=== PATIENT | female | born 1980 | race Caucasian/White ===

== ENCOUNTER 2016-11-17 02:01 | Emergency (ER) | payer OTHER ==
[2016-11-17 02:07] VITALS: RESP 16
[2016-11-17 02:36] LABS: % IMMATURE GRANULYOCYTES 0.6 % (0.0-1.1); ABSOLUTE IMMATURE GRANULOCYTES 0.13 10^3/uL (0.00-0.10); ADD DIFF? NO; ADD MORPH? NO; ADD SCAN? NO; ATYPICAL LYMPHOCYTE FLAG 40 (0-99); FRAGMENT RBC FLAG 0 (0-99); HEMATOCRIT 36.3 % (38.0-47.0); HEMOGLOBIN 12.9 g/dL (12.6-16.3); LEFT SHIFT FLG 0 (0-99); LIPEMIA HEMOLYSIS FLAG 90 (0-99); MEAN CELL HEMOGLOBIN 33.9 pg (27.9-34.1); MEAN CELL HEMOGLOBIN CONCENTR. 35.5 g/dL (32.4-36.7); MEAN CELL VOLUME 95.3 fL (81.5-99.8); MEAN PLATELET VOLUME 10.7 fL (8.7-11.7); PLATELET CLUMPS FLAG 10 (0-99); PLATELET COUNT 255 10^3/uL (150-400); RED BLOOD CELL COUNT 3.81 10^6/uL (4.18-5.33); RED CELL DISTRIBUTION WIDTH 11.9 % (11.5-15.2)
[2016-11-17 02:50] LABS: ALANINE AMINOTRANSFERASE 32 IU/L (9-52); ALBUMIN 3.8 g/dL (3.5-5.0); ALKALINE PHOSPHATASE 106 IU/L (38-126); ANION GAP 9 mEq/L (8-16); ASPARTATE AMINOTRANSFERASE 21 IU/L (14-46); BILIRUBIN,TOTAL 0.3 mg/dL (0.1-1.4); CALCIUM 9.2 mg/dL (8.5-10.4); CARBON DIOXIDE 21 mEq/l (22-31); CHLORIDE 107 mEq/L (97-110); CREATININE 0.4 mg/dL (0.6-1.0); GLOMERULAR FILTRATION RATE > 60; GLUCOSE 88 mg/dL (70-100); POTASSIUM 3.7 mEq/L (3.5-5.2); SODIUM 137 mEq/L (134-144); TOTAL PROTEIN 6.7 g/dL (6.3-8.2)
[2016-11-17] MEDS ORDERED: ONDANSETRON 4 MG/2 ML VIAL ONE (03:05)
[2016-11-17] MEDS ORDERED: ONDANSETRON 4 MG/2 ML VIAL IVP ONE (03:07)
--- NOTE | 2016-11-17 03:51 | EDPHY ---
H & P Stated Complaint: pt says 18 weeks , began having vaginal bleeding approx 1 hr ago Time Seen by Provider: 11/17/16 03:22 HPI/ROS: HPI The patient presents with vaginal bleeding which began about 1 hour ago. She was resting in bed and got up to go to the bathroom and noticed that she had saturated her underwear with bright red blood. This was painless. She called her OB and was instructed to go to the emergency room. She now all has continued mild bleeding, she is not passing any clots. This is improved from previous it is mild in severity. REVIEW OF SYSTEMS Constitutional: No fever, no chills. Musculoskeletal: No back pain. Skin: No rashes. Neurological: No headache. PMHx: History of alcohol withdrawal seizures Soc Hx: Lives at home with her partner in children PHYSICAL General Appearance: Alert, no distress Eyes: Pupils equal and round no pallor or injection ENT, Mouth: Mucous membranes moist Respiratory: There are no retractions, lungs are clear to auscultation Cardiovascular: Regular rate and rhythm Gastrointestinal: Abdomen is soft and non-tender, no masses, bowel sounds normal Neurological: A&O, moves all extremities Skin: Warm and dry, no rashes Musculoskeletal: Neck is supple non tender Extremities: symmetrical, full range of motion Psychiatric: Patient is oriented X 3, there is no agitation Source: Patient - Personal History LMP (Females 10-55): Tetanus Vaccine Date: 2008 - Medical/Surgical History Hx Asthma: No Hx Chronic Respiratory Disease: No Hx Diabetes: No Hx Cardiac Disease: No Hx Renal Disease: No Hx Cirrhosis: No Hx Alcoholism: No Hx HIV/AIDS: No Hx Splenectomy or Spleen Trauma: No Other PMH: SEIZURE 2012 FROM ETOH WITHDRAWL, d & c, csection x 1 - Social History Smoking Status: Light smoker Constitutional: Initial Vital Signs Temperature (C) 36.7 C 11/17/16 02:04 Heart Rate 109 H 11/17/16 02:04 Respiratory Rate 16 11/17/16 02:04 Blood Pressure 106/70 11/17/16 02:04 O2 Sat (%) 95 11/17/16 02:04 O2 Delivery Mode Room Air Allergies/Adverse Reactions: Penicillins Allergy (Unknown, Verified 11/17/16 02:07) Unknown Home Medications: Medication Instructions Recorded Vit27&Calcium/Iron/FA 1 each PO DAILY 01/20/16 [] Medical Decision Making - Diagnostics Imaging: Obstetrical ultrasound: Demonstrates normal 18 week with posterior placenta previa, discussed with Dr. Love of Radiology. Differential Diagnosis: This is a 36-year-old female who is 18 weeks who presents with vaginal bleeding which is painless and improving. On exam, she is hemodynamically stable. Basic labs were checked and were unremarkable, hemoglobin is normal. Ultrasound reveals normal with placenta previa. The case was discussed with Dr. Johnson of OBGYN. The patient is Rh negative and I planned on giving her RhoGAM, however her partner and father of this child is also Rh negative and has documentation with him in form of blood donation card to confirm this. Because of this, she does not need to receive RhoGAM. She will be discharged with follow up with OBGYN and plan for ultrasound in 2 weeks. - Data Points Laboratory Results: Laboratory Results 11/17/16 02:20 11/17/16 02:20 11/17/16 02:20 Patient ABO/Rh O NEGATIVE Antibody Screen NEGATIVE Medications Given: Discontinued Medications Sodium Chloride (Ns) 1,000 mls @ 0 mls/hr IV ONCE ONE PRN Reason: Wide Open Stop: 11/17/16 03:55 Last Admin: 11/17/16 02:45 Dose: 1,000 mls Ondansetron HCl (Zofran) 4 mg IVP EDNOW ONE Stop: 11/17/16 03:08 Last Admin: 11/17/16 03:13 Dose: 4 mg Departure - Departure Disposition: Home, Routine, Self-Care Clinical Impression: Vaginal bleeding before 22 weeks gestation, Placenta previa Condition: Good Instructions: Placenta Previa (ED) Additional Instructions: We found placenta previa on your ultrasound today. This is something that can belt changer time, as the placenta can move out of the way later in the . However, you need to have a repeat ultrasound to check on this. In the meantime, you should return to the emergency room if your bleeding continues. You should be on pelvic rest, meaning nothing should go in her vagina and you should not have any sexual intercourse until your evaluated by your OBGYN. You should also avoid any strenuous activity. Referrals: Jenniffer Johnson MD [Medical Doctor] - As per Instructions
[2016-11-17] MEDS ORDERED: NS 1,000 ML IV ONE (03:54)
[2016-11-17 04:00] VITALS: BP 105/60; PULSE 72; TEMP 97.9; O2SAT 96
== END 2016-11-17 04:00 | disposition home or self-care (01) ==
DX: O44.12 Complete placenta previa with hemorrhage, second trimester (principal); F17.200 Nicotine dependence, unspecified, uncomplicated; Z3A.18 18 weeks gestation of pregnancy
CPT/HCPCS: 96374; J2405

== ENCOUNTER 2016-12-02 19:22 | Observation (INO) | payer OTHER ==
[2016-12-02 20:04] LABS: % IMMATURE GRANULYOCYTES 0.8 % (0.0-1.1); ABSOLUTE IMMATURE GRANULOCYTES 0.15 10^3/uL (0.00-0.10); ADD DIFF? NO; ADD MORPH? NO; ADD SCAN? NO; ATYPICAL LYMPHOCYTE FLAG 0 (0-99); FRAGMENT RBC FLAG 0 (0-99); HEMATOCRIT 38.4 % (38.0-47.0); HEMOGLOBIN 13.2 g/dL (12.6-16.3); LEFT SHIFT FLG 0 (0-99); LIPEMIA HEMOLYSIS FLAG 90 (0-99); MEAN CELL HEMOGLOBIN 33.6 pg (27.9-34.1); MEAN CELL HEMOGLOBIN CONCENTR. 34.4 g/dL (32.4-36.7); MEAN CELL VOLUME 97.7 fL (81.5-99.8); MEAN PLATELET VOLUME 11.3 fL (8.7-11.7); PLATELET CLUMPS FLAG 0 (0-99); PLATELET COUNT 275 10^3/uL (150-400); RED BLOOD CELL COUNT 3.93 10^6/uL (4.18-5.33)
[2016-12-02] MEDS ORDERED: ACETAMINOPHEN 500 MG TAB PO PRN (20:39)
[2016-12-02] MEDS ORDERED: ZOLPIDEM TARTRATE 5 MG TAB PO PRN (20:40)
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
--- NOTE | 2016-12-03 09:08 | OBPROG ---
OBG Progress Note Assessment/Plan: Assessment: 36 y/o @ 20 4/7 weeks with bleeding placenta previa. Plan: MFM consultation today to evaluate bleed and help develop plan of care. Pt is Rh -, we are researching her 's blood type now and if documented, she will not need Rhogam. Likely d/c home after MFM appointment today. 12/03/16 09:06 Subjective: Pt is doing well overnight. She continues to have bleeding but it is now dark and only when she wipes. She is having sm clots. + FM. She is scheduled to see MFM @ 11 am today. Objective: 12/02/16 19:40 Patient ABO/Rh O NEGATIVE 12/02/16 19:40 Uterine Position/Fundal Height: Umbilicus -1 Uterine Tone: Firm ICD10 Worksheet Patient Problems: Problems Problem Status Onset Breech presentation Acute delivery delivered Acute
== END 2016-12-03 18:45 | disposition home or self-care (01) ==
LOC: FLD 19:22
PROVIDERS: ADMIT Obstetrics & Gynecology; ATTEND Obstetrics & Gynecology
DX: O44.12 Complete placenta previa with hemorrhage, second trimester (principal); O99.332 Smoking (tobacco) complicating pregnancy, second trimester; Z3A.20 20 weeks gestation of pregnancy; Z88.2 Allergy status to sulfonamides
CPT/HCPCS: 76811; G0378

== ENCOUNTER 2016-12-03 21:44 | Observation (INO) | payer OTHER ==
[2016-12-03] MEDS ORDERED: LR 1,000 ML IV ONE (22:00)
--- NOTE | 2016-12-03 22:35 | OBPROG ---
OBG Progress Note Assessment/Plan: Assessment: fhr 164 no contractions abdomen soft bright red vaginal bleeding cbc type and screen iv [id number] lr consult dr. justice ramires weighing pads to estimate maternal bleeding Plan:bedrest with bathroom privileges, comfort mattress ,consult for POC dr. justice ramires,iv fluids x 1l iv access, observation overnight, discussed possibility of bedrest or decreased activity at home 12/03/16 22:35 Subjective: Denies contractions. Bleeding 2 weeks ago. yesterday all day and today x 1. 15x7 cm blood on this pad. 2 clots the size of quarters smaering on 2 pads. " Alotof bleeding on my bathroom floor. " FHR (bpm): 164 Membranes: Intact - Physical Exam General Appearance: WD/WN, alert, no apparent distress Respiratory: chest non-tender, lungs clear, normal breath sounds Cardiac/Chest: regular rate, rhythm Abdomen: normal bowel sounds Membranes: Intact Extremities: normal range of motion, Ethel's sign (negative bilaterally) DTR- Lower Extremities: Knee (R): 1+, Knee (L): 1+ Skin: normal color, warm/dry Neuro/Psych: no motor/sensory deficits, alert, normal mood/affect, oriented x 3 ICD10 Worksheet Patient Problems: Problems Problem Status Onset Breech presentation Acute delivery delivered Acute
[2016-12-03 22:42] LABS: % IMMATURE GRANULYOCYTES 0.9 % (0.0-1.1); ABSOLUTE IMMATURE GRANULOCYTES 0.18 10^3/uL (0.00-0.10); ADD DIFF? NO; ADD MORPH? NO; ADD SCAN? NO; ATYPICAL LYMPHOCYTE FLAG 10 (0-99); FRAGMENT RBC FLAG 0 (0-99); HEMATOCRIT 34.9 % (38.0-47.0); HEMOGLOBIN 12.3 g/dL (12.6-16.3); LEFT SHIFT FLG 0 (0-99); LIPEMIA HEMOLYSIS FLAG 90 (0-99); MEAN CELL HEMOGLOBIN 33.5 pg (27.9-34.1); MEAN CELL HEMOGLOBIN CONCENTR. 35.2 g/dL (32.4-36.7); MEAN CELL VOLUME 95.1 fL (81.5-99.8); MEAN PLATELET VOLUME 10.7 fL (8.7-11.7); PLATELET CLUMPS FLAG 0 (0-99); PLATELET COUNT 249 10^3/uL (150-400); RED BLOOD CELL COUNT 3.67 10^6/uL (4.18-5.33); RED CELL DISTRIBUTION WIDTH 12.1 % (11.5-15.2)
[2016-12-03] MEDS ORDERED: LR 1,000 ML IV PRN (22:42)
[2016-12-03] MEDS ORDERED: ZOLPIDEM TARTRATE 5 MG TAB PO PRN (22:52)
--- NOTE | 2016-12-03 23:53 | GHP ---
DATE OF ADMISSION: 12/03/2016 Patient is a 7, P3, A3, who comes in on 12/03/2016 at 2230 with complaints of excessive vaginal bleeding and clots. Patient's EDC is 04/21/2017 , which gives her a gestational age of 20-4/7 weeks. States feeling positive movement. Denies leaking of fluid. This a fu visit patient was also here until early am admitted for same complaint recent us with MFM previa with vessels right at the cervical os. Routine care with [facility] between 6-7 gestatin PAST MEDICAL HISTORY: The patient is a smoker 1-2 cigarettes per day. PAST SURGICAL HISTORY: Patient has had a previous D and C, as well as previous . HISTORY: 1. A TAB. 2. A TAB. 3. A vaginal delivery with retained placenta products and a D and C. This was a term delivery vaginally at 6 pounds. 4. A vaginal delivery at 6 pounds 38 weeks. 5. Miscarriage at 7 weeks. 6. at 36 weeks with spontaneous rupture of membranes. GYNECOLOGICAL HISTORY: Previous OCP use, as well as IUD Mirena use. In 2015 an abnormal Pap, positive high risk HPV, 16 and 18 were negative. Patient had a colposcopy. LAB WORK: Patient is O negative. RPR is nonreactive. GC CT is negative. HIV is negative. Rubella is immune. Today, hematocrit is 34.9, hemoglobin is 12.3 , platelets are 249. PHYSICAL EXAMINATION: GENERAL: Patient is awake, alert, oriented x3. LUNGS: Clear bilaterally. ABDOMEN: Bowel sounds are positive in all 4 quadrants. Abdomen is soft on palpation. : Vaginal bleeding is positive. Clots x2 the size of quarters positive. NEUROLOGIC: DTRs are 1+ bilaterally. Homans sign is negative bilaterally. PLAN OF CARE: CBC, type and screen, IV 1 L bolus, then _buffcap IV . Weighing of pads to allow for estimation of blood loss. Consult with Dr. Jenniffer Johnson on plan of care. Bedrest with bathroom privileges. Iron 1 po qd, ambien for sleep. /[id number]/MODL MTDD
--- NOTE | 2016-12-04 06:09 | OBPROG ---
OBG Progress Note Assessment/Plan: Assessment: fhr 164 no contractions abdomen soft bleeding has darkened measured 6 mls through the night anemic report to oncoming shift slept through the night 160 doppler of heartrate consult dr. justice ramires as needed Plan:bedrest with bathroom privileges, report to oncoming shift 12/03/16 22:35 12/04/16 06:06 Subjective: slept through the night Objective: 12/03/16 22:25 FHR (bpm): 160 ICD10 Worksheet Patient Problems: Problems Problem Status Onset Breech presentation Acute delivery delivered Acute
--- NOTE | 2016-12-04 08:02 | OBPROG ---
OBG Progress Note Assessment/Plan: Assessment: 36 y/o @ 20 5/7 wks with posterior placenta previa with bleeding - improved Plan: Continue current management, observation for now Minimal spotting noted at this time per pt FHTs - dopplers q 4 hrs, most recently 160 bpm H/H stable at this time Discussed smoking cessation 12/04/16 08:02 Subjective: Pt seen and examined. She states minimal spotting when she just used the restroom this am. She changed her pad at 0600 and had a tbsp of blood noted in pad per Rn. Denies any cramping or pain. No LOF. FM noted. Objective: 12/03/16 22:25 - Physical Exam General Appearance: WD/WN, alert, no apparent distress Abdomen: non-tender, soft, other (Gravid) Extremities: non-tender, normal inspection ICD10 Worksheet Patient Problems: Problems Problem Status Onset Placenta previa antepartum in second trimester Acute
[2016-12-04] MEDS ORDERED: IRON POLYSAC/IRON HEME 28 MG TAB PO SCH (09:00)
[2016-12-04] MEDS ORDERED: DOCUSATE SODIUM 100 MG CAP PO SCH (09:00)
== END 2016-12-04 13:36 | disposition home or self-care (01) ==
LOC: FLD 21:44
PROVIDERS: ADMIT Advanced Practice Midwife; ATTEND Obstetrics & Gynecology
DX: O44.12 Complete placenta previa with hemorrhage, second trimester (principal); O34.219 Maternal care for unspecified type scar from previous cesarean delivery; O99.332 Smoking (tobacco) complicating pregnancy, second trimester; Z3A.20 20 weeks gestation of pregnancy; F17.210 Nicotine dependence, cigarettes, uncomplicated
CPT/HCPCS: G0378 ×2

== ENCOUNTER 2016-12-27 21:59 | Observation (INO) | payer OTHER ==
[2016-12-27] MEDS ORDERED: LR 1,000 ML IV ONE (23:30)
[2016-12-27 23:32] LABS: % IMMATURE GRANULYOCYTES 0.9 % (0.0-1.1); ABSOLUTE IMMATURE GRANULOCYTES 0.16 10^3/uL (0.00-0.10); ADD DIFF? NO; ADD MORPH? NO; ADD SCAN? NO; ATYPICAL LYMPHOCYTE FLAG 0 (0-99); FRAGMENT RBC FLAG 0 (0-99); HEMATOCRIT 32.6 % (38.0-47.0); HEMOGLOBIN 11.5 g/dL (12.6-16.3); LEFT SHIFT FLG 0 (0-99); LIPEMIA HEMOLYSIS FLAG 90 (0-99); MEAN CELL HEMOGLOBIN 34.1 pg (27.9-34.1); MEAN CELL HEMOGLOBIN CONCENTR. 35.3 g/dL (32.4-36.7); MEAN CELL VOLUME 96.7 fL (81.5-99.8); MEAN PLATELET VOLUME 10.8 fL (8.7-11.7); PLATELET CLUMPS FLAG 0 (0-99); PLATELET COUNT 254 10^3/uL (150-400); RED BLOOD CELL COUNT 3.37 10^6/uL (4.18-5.33); RED CELL DISTRIBUTION WIDTH 12.3 % (11.5-15.2)
--- NOTE | 2016-12-27 23:41 | OBPROG ---
OBG Progress Note Assessment/Plan: Assessment:1l of water orally on way to the hospital speculum exam cervix closed visually negative nitrazine negative ferning negative pooling consulted dr. santillan on plan of care iv fluid x 1l Plan:iv fluids reassess pain 12/27/16 23:37 Subjective: Complaint of mucousy discharge. Dark brown streaks in the mucous. 2129 began cramping. Objective: 12/27/16 22:50 - SVE Dilation (cm): 0 Effacement (%): 0 Station: -3 Current Contraction Pattern: Irregular FHR (bpm): 150 Membranes: Intact - Physical Exam General Appearance: WD/WN, alert, no apparent distress Respiratory: chest non-tender, lungs clear, normal breath sounds Cardiac/Chest: regular rate, rhythm Abdomen: normal bowel sounds Membranes: Intact Extremities: normal range of motion, Ethel's sign (negative homens signbilaterally) DTR- Lower Extremities: Knee (R): 1+, Knee (L): 1+ Skin: normal color, warm/dry Neuro/Psych: no motor/sensory deficits, alert, normal mood/affect, oriented x 3 ICD10 Worksheet Patient Problems: Problems Problem Status Onset Placenta previa antepartum in second trimester Acute
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
--- NOTE | 2016-12-28 05:13 | OBPROG ---
OBG Progress Note Assessment/Plan: Assessment: with intial assessment irritability noted on the monitor/ now resolved after iv fluids patient able to rest over last several hours patient complaint of back pain 3-4 times an hour intially iv fluids completed iv buff capped consult with dr. martha santillan on poc elevated wbc 18 dr. santillan made aware afebrile no orders at that time with intial consultation after speculum exam Plan:observe overnight reassess in the am 12/27/16 23:37 12/28/16 05:07 Subjective: resting Objective: 12/27/16 22:50 Patient ABO/Rh O NEGATIVE 12/27/16 22:50 Current Contraction Pattern: Other (Specify) (none) ICD10 Worksheet Patient Problems: Problems Problem Status Onset Placenta previa antepartum in second trimester Acute
--- NOTE | 2016-12-28 20:02 | GDS ---
[f rep st] DISCHARGE SUMMARY HOSPITAL COURSE: The patient is a 36-year-old, 7, para 2-1-3-3, who is 24 weeks gestation. She has a known placenta previa and had mucousy brown discharge yesterday. She was admitted and ob served overnight. The patient has not had any further brown or mucousy discharge throughout the ent eric day despite getting up to go to the bathroom multiple times. She had cramping and boyd y esterday before she came in, but has denied any further cramping or boyd. She is hydrated we ll and is very anxious to go home. We had a long discussion about bleeding precautions, pre cautions, and lifting restrictions. The patient will go home and continue with limited activity, no lifting, and on pelvic rest. The patient will follow up in the office as scheduled for repeat ultr asound to check her placenta in 2 weeks. Call us sooner if anything is indicated. status is reassuring, and the patient is not having any contractions. I declined to do a second followup pelv ic exam. /[id number]/MODL
== END 2016-12-28 18:45 | disposition home or self-care (01) ==
LOC: FLD 21:59
PROVIDERS: ADMIT Advanced Practice Midwife; ATTEND Advanced Practice Midwife
DX: O44.12 Complete placenta previa with hemorrhage, second trimester (principal); O34.219 Maternal care for unspecified type scar from previous cesarean delivery; O99.332 Smoking (tobacco) complicating pregnancy, second trimester; Z3A.24 24 weeks gestation of pregnancy; F17.210 Nicotine dependence, cigarettes, uncomplicated; Z88.0 Allergy status to penicillin
CPT/HCPCS: G0378 ×2

== ENCOUNTER 2017-01-03 15:45 | Observation (INO) | payer OTHER ==
[2017-01-03] MEDS ORDERED: BETAMETHASONE IM SYRINGE IM ONE (18:30)
[2017-01-03] MEDS ORDERED: VANCOMYCIN HCL/NORMAL SALINE 250 ML IV ONE (18:32)
[2017-01-03] MEDS ORDERED: CALCIUM GLUC 10% 1 GM/10 ML VIAL IVP PRN (18:34)
[2017-01-03] MEDS ORDERED: MAGNESIUM SULF 4 GM/WATER 100 ML IV ONE (18:34)
[2017-01-03] MEDS ORDERED: AZITHROMYCIN IV 500 MG in D5W 250 ML IV ONE (18:34)
[2017-01-03] MEDS ORDERED: Mag Sulf 500 ML IV SCH (18:45)
[2017-01-03 19:37] LABS: % IMMATURE GRANULYOCYTES 0.9 % (0.0-1.1); ABSOLUTE IMMATURE GRANULOCYTES 0.19 10^3/uL (0.00-0.10); ADD DIFF? NO; ADD MORPH? NO; ADD SCAN? NO; ATYPICAL LYMPHOCYTE FLAG 0 (0-99); FRAGMENT RBC FLAG 0 (0-99); HEMATOCRIT 33.8 % (38.0-47.0); HEMOGLOBIN 11.8 g/dL (12.6-16.3); LEFT SHIFT FLG 0 (0-99); LIPEMIA HEMOLYSIS FLAG 90 (0-99); MEAN CELL HEMOGLOBIN 33.1 pg (27.9-34.1); MEAN CELL HEMOGLOBIN CONCENTR. 34.9 g/dL (32.4-36.7); MEAN CELL VOLUME 94.9 fL (81.5-99.8); MEAN PLATELET VOLUME 11.2 fL (8.7-11.7); PLATELET CLUMPS FLAG 0 (0-99); PLATELET COUNT 262 10^3/uL (150-400); RED BLOOD CELL COUNT 3.56 10^6/uL (4.18-5.33); RED CELL DISTRIBUTION WIDTH 12.3 % (11.5-15.2)
--- NOTE | 2017-01-03 19:46 | GHP ---
[f rep st] PREOP HISTORY AND PHYSICAL DATE OF ADMISSION: 01/03/2017 ADMITTING DIAGNOSIS: Intrauterine at 24 and 6/7th weeks gestation with premature rupture of the membranes and placenta previa. HISTORY OF PRESENT ILLNESS: The patient is a 36-year-old, 7, para 2-1-3-3 with unsure last menstrual period, but an EDC of 04/19/2017, set by an 8 and 6/7th week ultrasound. She is 24 and 6 today. She has had a complicated by placenta previa, was diagnosed at 20 weeks. She has had repeat bleeding episodes throughout her second trimester, where she has been hospitalized and mo nitored closely, and started on 17-hydroxy progesterone injections. She was doing well without blee ding, but on the morning of the started complaining of a gush of fluid and a continuous trickle of water, and she has changed 7-8 panty liners over the day. She was evaluated in the office, and h er perineum was found to be wet. She had a positive pool, positive Nitrazine, but negative ferning. She was sent to Labor and Delivery for evaluation, and had an AmniSure done that was positive. Pr enatal risk factors include Rh negative. Her is also negative. She has a short inter fidelia. Her baby is 10 months old. She is a smoker. She was diagnosed with a placenta previa at 20 w eeks, and she had a history of a in December 2015 at 36 weeks due to severe IUGR and elevated Dopplers. PAST OBSTETRICAL HISTORY: In 2007, she had a therapeutic . In January of 2009, she had a vagin al delivery of a viable female, 5 pounds 14 ounces, at 37 weeks. She had to have a D and C at 8 day s secondary to retained placenta. In March of 2010, she had a viable female, 6 pounds 5 o unces, 38 weeks. This was precipitous labor, but had a vacuum extraction secondary to bradycardia. In January of 2015, she had a spontaneous , did not need a D and C. In December of 2015, she had a viable male, 5 pounds 4 ounces, secondary to breech and IUGR at 36 and 5 and rupture. T his is her 7th . PAST GYNECOLOGICAL HISTORY: She has had abnormal Pap. She had an ASCUS Pap in this . The colpo was negative. History of depression. History of D and C secondary to retained pl acenta. No other past gynecological history. She had cryo to the cervix in 2003. Normal Paps unti l this . PAST MEDICAL HISTORY: She has history of alcohol abuse. She has been in recovery since 2013. She is a current smoker, smokes 2 cigarettes a day, and some nicotine vapor. History of ADD and depress ion. PAST SURGICAL HISTORY: 2015, D and C in 2008, and 2 therapeutic abortions. ALLERGIES: Penicillin causes a rash. MEDICATIONS: vitamins, DHA, and weekly 17-hydroxy progesterone. LABS: She is O negative. Her spouse is also negative. Antibody negative. RPR nonreactive. Rubel la immune. Hepatitis negative. HIV negative. She declined cystic fibrosis, SMA, fragile X. Pap w as ASCUS positive HPV. She declined any genetic screening tests. GBS is unknown. Her most recent ultrasound was today. Estimated weight was 771 g, 1 pound 11 ounces, 51st per centile. JACKIE was 16. She had a posterior placenta previa still covering the internal os. SOCIAL HISTORY: She is . She lives with her , Lloyd. 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 She has tobacco use. No alcohol use now. No drug use. FAMILY HISTORY: Maternal grandmother had heart disease and chronic hypertension, of pancreatic cancer. Maternal grandfather had colon cancer. Father has epilepsy, alcohol and nicotine use. PHYSICAL EXAMINATION: VITAL SIGNS: Today she is afebrile. Vital signs are stable. heart to henny are 130s. Appropriate for gestational age. She is not boyd. She has possible rupture. ASSESSMENT AND PLAN: A 36-year-old, 7, para 2-1-3-3 at 24 and 6/7th weeks gestation. Posit yasmani AmniSure. Positive premature rupture of the membranes and placenta previa. She is stab le currently. She is not currently having evidence of labor. Due to her early gestational age, she will be transferred to [facility] for care of the possible early . I am gi ving her a dose of betamethasone, IV vancomycin due to GBS unknown, and penicillin allergy, and azit hromycin, and also starting magnesium for neural protection. An ambulance has been arranged from [facility], and she is being transferred. /[id number]/MODL
== END 2017-01-03 20:03 | disposition short-term general hospital (02) ==
LOC: FLD 15:45
PROVIDERS: ADMIT Obstetrics & Gynecology; ATTEND Obstetrics & Gynecology
DX: O42.912 Preterm premature rupture of membranes, unspecified as to length of time between rupture and onset of labor, second trimester (principal); O44.02 Complete placenta previa NOS or without hemorrhage, second trimester; O99.332 Smoking (tobacco) complicating pregnancy, second trimester; F17.210 Nicotine dependence, cigarettes, uncomplicated; Z3A.24 24 weeks gestation of pregnancy
CPT/HCPCS: 59025; G0378; J0456; J0610; J0702; J3370; J3475